=== PATIENT | female | born 1970 | race Caucasian/White ===

== ENCOUNTER 2023-01-28 17:11 | Emergency (ER) | payer OTHER, SELFPAY ==
[2023-01-28 17:14] VITALS: BP 145/86; PULSE 87; RESP 18; TEMP 36.7; O2SAT 100
--- NOTE | 2023-01-28 18:34 | ED.URI ---
HPI - URI/Sore Throat General Chief Complaint: Upper Respiratory Infection Stated Complaint: Headache/Sinus Pain Time Seen by Provider: 01/28/23 18:30 Source: patient, RN notes reviewed and old records reviewed Mode of arrival: ambulatory Limitations: no limitations History of Present Illness HPI Narrative: 52-year-old female who presents to [facility] with complaints of 2 day history of cough, sore throat, sinus congestion, and headache pain. Patient states she has taken Claritin- D and Advil for her symptoms. Patient has not been COVID vaccinated. Patient reports that she has not had any fevers that she knows of but has had chills and sweats. Patient denies any known ill contacts. Patient reports that she is suppose to travel on cruise next week leaving on Tuesday. MD elicited complaint: cough, sore throat, nasal congestion and other (headache) Onset (ago): day(s) (day 2 of symptoms) Pain scale (0-10): 4 Able to tolerate fluids by mouth: Yes Treatments prior to arrival: other (claritin D and Advil) Related Data Home Medications Medication Instructions Recorded Confirmed No Home Medications 01/28/23 01/28/23 Allergies Allergy/AdvReac Type Severity Reaction Status Date / Time codeine Allergy Unknown Verified 01/28/23 17:38 Penicillins Allergy Unknown Verified 01/28/23 17:38 Review of Systems Review of Systems: CONSTITUTIONAL:Reports malaise, chills, sweats, or fever. EYES: Denies visual changes, redness, or discharge. ENT: Reports rhinorrhea, congestion, sinus pain,no otalgia positive for sore throat. CARDIOVASCULAR: Denies chest pain, palpitations, or edema. RESPIRATORY: Reports cough.? Denies dyspnea. GASTROINTESTINAL: Denies abdominal pain, nausea, vomiting, diarrhea SKIN: Denies rash or itching MUSCULOSKELETAL:Reports myalgia. NEUROLOGIC: Reports headache. All systems reviewed & are unremarkable except as noted in HPI and below PMFSH Surgical History Surgical History (Updated 01/31/23 @ 23:55 by Lizzette Bradshaw NP) H/O tubal ligation Social History Social History (Updated 02/01/23 @ 00:00 by Lizzette Bradshaw NP) Smoking status: Current every day smoker Alcohol intake: current Alcohol use details: social Substance use type: does not use Gender identity (if verbalized by the patient): Female Comments At time of signature, agree with nursing past medical, surgical, social and family history. There is no relevant family history pertinent to the presenting complaint Exam Narrative: GENERAL: Well-appearing, well-nourished, and in no acute distress. HEAD: Normocephalic EYES: PERRLA, conjunctivae clear ENT: Nares clear, turbinates edematous and erythematous, clear discharge. Mucous membranes moist. TM pearly haque with dull light reflex bilaterally; no tragal tenderness. Oropharynx erythematous without lesions. Tonsils not enlarged and without exudate, no drooling, no hoarseness, no trismus, uvula midline.Post nasal drainage NECK: Supple. No lymphadenopathy CHEST: Clear to auscultation, breath sounds equal. No wheezing, rhonchi, rales, or stridor. No respiratory distress, speaks in full sentences.cough SAO2 100% on room air HEART: Regular rate and rhythm. No murmur heard. SKIN: Warm, dry, no rash. NEURO: Alert and oriented x3. PSYCH: Normal mood and affect Course Course Emergency Course: Patient is aware of diagnosis, understands and agrees to treatment plan.? Anticipatory guidance given.? Patient agrees to follow-up as directed and is aware of reasons to seek care at the emergency department. Portions of this record may have been created with voice recognition software Level of Care: Express Care Visit Vital Signs Vital signs: Vital Signs Temperature 36.7 C 01/28/23 17:14 Pulse Rate 87 01/28/23 17:14 Respiratory Rate 18 01/28/23 17:14 Blood Pressure 145/86 H 01/28/23 17:14 Pulse Oximetry 100 01/28/23 17:14 Oxygen Delivery Room Air 0
== END 2023-01-28 18:51 | disposition home or self-care (01) ==
PROVIDERS: Emergency Provider Registered Nurse; PCP Physician Assistant
DX: U07.1 COVID-19 (principal); F17.200 Nicotine dependence, unspecified, uncomplicated
CPT/HCPCS: 87081; 87426; 87804; 87880; 99213; C9803; G0463